=== PATIENT | female | born 1950 | race Caucasian/White ===

== ENCOUNTER 2022-01-24 18:37 | Emergency (ER) | payer MEDICARE, OTHER ==
[~2022-01-24] VITALS: Ht 167.6 cm; Wt 95.3 kg
--- NOTE | 2022-01-24 18:39 | NUR ---
Placed in room 01 . Placed on development analyst, blood pressure machine and pulse oximeter. To gown for exam. Side rails up.
[2022-01-24 18:40] VITALS: BP_SYST 130
--- NOTE | 2022-01-24 18:45 | NUR ---
Pt brought in from home by family member due to PCP reported abn BUN/Cr levels this am and advised pt to come to ER for further eval. Pt arrived to ED in stable condition. No acute signs of distress. Breathing adequately on RA.
[2022-01-24] MEDS ORDERED: SIMV40TA2 PO (19:19)
[2022-01-24] MEDS ORDERED: ASCO500W7 PO (19:19)
[2022-01-24] MEDS ORDERED: GABA-533 PO (19:19)
[2022-01-24] MEDS ORDERED: ASPI-862 PO (19:19)
[2022-01-24] MEDS ORDERED: LOSA50TA3 PO (19:19)
[2022-01-24] MEDS ORDERED: FERR236T3 PO (19:19)
[2022-01-24] MEDS ORDERED: CYAN50009 PO (19:19)
[2022-01-24] MEDS ORDERED: MONT-40 PO (19:19)
[2022-01-24] MEDS ORDERED: VITD2000 PO (19:19)
--- NOTE | 2022-01-24 20:30 | NUR ---
BROKER AT BEDSIDE TO COLLECT BLOOD
[2022-01-24 20:57] LABS: PLATELET COUNT (AUTO) 240 K/uL (130-430)
[2022-01-24 21:10] LABS: BASOPHILS % (AUTO) 0.6 % (0.0-2.0); EOSINOPHILS # (AUTO) 0.3 K/uL (0.0-0.4); EOSINOPHILS % (AUTO) 3.1 % (0.0-4.0); HEMATOCRIT 28.1 % (36-48); HEMOGLOBIN 9.5 g/dL (12.0-16.0); LYMPHOCYTES # (AUTO) 1.1 K/uL (1.0-5.5); LYMPHOCYTES % (AUTO) 13.9 % (20.5-51.5); MEAN CORPUSCULAR HEMOGLOBIN 31 pg (27-31); MEAN CORPUSCULAR HGB CONC 34 % (32-36); MEAN CORPUSCULAR VOLUME 92 fL (79.0-98.0); MONOCYTES # (AUTO) 0.6 K/uL (0.0-1.0); MONOCYTES % (AUTO) 7.5 % (1.7-9.3); NEUTROPHILS # (AUTO) 6.1 K/uL (1.8-7.7); NEUTROPHILS % (AUTO) 74.9 % (40.0-70.0); RED BLOOD CELL COUNT(AUTO) 3.05 MIL/uL (4.2-6.2); RED CELL DISTRIBUTION WIDTH 13.6 % (9.0-15.0); WHITE BLOOD COUNT (AUTO) 8.2 K/uL (4.8-10.8)
[2022-01-24 21:13] LABS: ANION GAP 12 (5-15); CALCIUM 9.1 mg/dL (8.4-11.0); CHLORIDE 107 mmol/L (98-107); CREATININE 3.19 mg/dL (0.55-1.30); GLUCOSE 247 mg/dL (70-99); POTASSIUM 4.4 mmol/L (3.5-5.1); SODIUM SERUM 139 mmol/L (136-145); UREA NITROGEN, BLOOD 83 mg/dL (8-21)
[2022-01-24 21:22] LABS: ALANINE AMINOTRANSFERASE 13 U/L (12-78); ALBUMIN 3.5 g/dL (3.4-4.8); ASPARTATE AMINOTRANSFERASE 7 U/L (10-37); PHOSPHORUS 6.9 mg/dL (2.7-4.5); TOTAL BILIRUBIN 0.2 mg/dL (0.0-1.0)
[2022-01-24 21:46] LABS: BILIRUBIN,URINE NEGATIVE (NEGATIVE); BLOOD, URINE NEGATIVE (NEGATIVE); CLARITY/URINE SL CLOUDY (CLEAR); COLOR,URINE YELLOW (YELLOW); GLUCOSE,URINE NEGATIVE (NEGATIVE); KETONES,URINE NEGATIVE (NEGATIVE); LEUKOCYTE ESTERASE ,URINE 2+ (NEGATIVE); NITRITE, URINE NEGATIVE (NEGATIVE); PH,URINE 5.5 (5.0-8.0); PROTEIN URINE NEGATIVE (NEGATIVE); UROBILINOGEN,URINE 0.2 (0.2-1.0)
[2022-01-24 22:20] LABS: RBC,URINE 0-3 /HPF (0-3)
[2022-01-24 22:21] LABS: BACTERIA,URINE MANY /HPF (None Seen); MUCUS,URINE None Seen /LPF (None Seen); YEAST,URINE Moderate /HPF (None Seen)
--- NOTE | 2022-01-24 23:46 | NUR ---
Covid HELENA swab collected and sent to lab.
[2022-01-25] MEDS ORDERED: cefTRIAXone 1 GM in D5W 50 ML IV ONE (02:45)
[2022-01-25] MEDS ORDERED: cefTRIAXone 1 GM VIAL ONE (02:50)
[2022-01-25] MEDS ORDERED: GABAPENTIN 100 MG CAPSULE PO ONE (03:45)
[2022-01-25] MEDS ORDERED: GABAPENTIN 100 MG CAPSULE ONE (03:46)
[2022-01-25] MEDS ORDERED: NACL 0.9% 1,000 ML IV ONE (04:30)
--- NOTE | 2022-01-25 06:00 | NUR ---
Patient to be transferred to [facility]. Is being transferred due to higher level of care/Insurance. Receiving facility has accepting physician and available space. ER physician has signed transfer form. Patient or responsible alliance party has agreed to transfer and signed form. Copy of nursing notes, lab reports, EKG, Physicians Orders and X-rays to be sent with patient. Receiving physician is MD Graham. [facility] service has been called for transfer.
--- NOTE | 2022-01-25 06:44 | NUR ---
[facility] arrived for transport. Report called in to Johnnie in ER @ [facility].
[2022-01-25 06:50] VITALS: BP_SYST 124
--- NOTE | 2022-01-25 06:51 | NUR ---
Terrance was made aware of transer.
== END 2022-01-25 06:49 | disposition short-term general hospital (02) ==
LOC: SED 18:37
DX: R53.1 Weakness (principal); R47.81 Slurred speech; I10 Essential (primary) hypertension; E11.9 Type 2 diabetes mellitus without complications; Z79.899 Other long term (current) drug therapy; Z20.822 Contact with and (suspected) exposure to COVID-19
CPT/HCPCS: 36415; 71045; 76770; 80053; 81000; 83735; 84100; 84484; 85025; 87086; 87426; 93005; 96361; 96365; 99285; J0696; J7030

== ENCOUNTER 2022-02-14 13:49 | Emergency (ER) | payer MEDICARE ==
[~2022-02-14] VITALS: Ht 167.6 cm; Wt 95.3 kg
[2022-02-14 13:49] VITALS: BP_SYST 141
[~2022-02-14 13:49] MED LIST: ASCO500W7 PO; ASPI-862 PO; CYAN50009 PO; FERR236T3 PO; GABA-533 PO; LOSA50TA3 PO; MONT-40 PO; SIMV40TA2 PO; VITD2000 PO
[2022-02-14 15:31] LABS: BASOPHILS # (AUTO) 0.1 K/uL (0.0-0.2); BASOPHILS % (AUTO) 1.2 % (0.0-2.0); EOSINOPHILS # (AUTO) 0.5 K/uL (0.0-0.4); EOSINOPHILS % (AUTO) 8.1 % (0.0-4.0); HEMATOCRIT 22.6 % (36-48); LYMPHOCYTES % (AUTO) 15.6 % (20.5-51.5); MEAN CORPUSCULAR HEMOGLOBIN 32 pg (27-31); MEAN CORPUSCULAR HGB CONC 34 % (32-36); MEAN CORPUSCULAR VOLUME 93 fL (79.0-98.0); MONOCYTES # (AUTO) 0.5 K/uL (0.0-1.0); MONOCYTES % (AUTO) 7.3 % (1.7-9.3); NEUTROPHILS # (AUTO) 4.6 K/uL (1.8-7.7); NEUTROPHILS % (AUTO) 67.8 % (40.0-70.0); PLATELET COUNT (AUTO) 265 K/uL (130-430); RED BLOOD CELL COUNT(AUTO) 2.43 MIL/uL (4.2-6.2); RED CELL DISTRIBUTION WIDTH 14.5 % (9.0-15.0); WHITE BLOOD COUNT (AUTO) 6.7 K/uL (4.8-10.8)
[2022-02-14 15:36] LABS: HEMOGLOBIN 7.7 g/dL (12.0-16.0)
[2022-02-14 15:44] LABS: ANION GAP 6 (5-15); CALCIUM 7.9 mg/dL (8.4-11.0); CHLORIDE 108 mmol/L (98-107); CREATININE 2.12 mg/dL (0.55-1.30); GLUCOSE 208 mg/dL (70-99); POTASSIUM 5.3 mmol/L (3.5-5.1); SODIUM SERUM 138 mmol/L (136-145); UREA NITROGEN, BLOOD 16 mg/dL (8-21)
[2022-02-14 15:50] LABS: ALANINE AMINOTRANSFERASE 11 U/L (12-78); ALBUMIN 2.5 g/dL (3.4-4.8); ASPARTATE AMINOTRANSFERASE 14 U/L (10-37); TOTAL BILIRUBIN 0.2 mg/dL (0.0-1.0)
[2022-02-14] MEDS ORDERED: MONT-40 PO (16:57)
[2022-02-14 17:16] LABS: BILIRUBIN,URINE NEGATIVE (NEGATIVE); BLOOD, URINE 3+ (NEGATIVE); COLOR,URINE YELLOW (YELLOW); GLUCOSE,URINE NEGATIVE (NEGATIVE); KETONES,URINE NEGATIVE (NEGATIVE); LEUKOCYTE ESTERASE ,URINE 1+ (NEGATIVE); NITRITE, URINE NEGATIVE (NEGATIVE); PH,URINE 5.5 (5.0-8.0); PROTEIN URINE NEGATIVE (NEGATIVE); UROBILINOGEN,URINE 0.2 (0.2-1.0)
[2022-02-14 17:22] LABS: CLARITY/URINE SLIGHTLY HAZY (CLEAR)
[2022-02-14 17:31] LABS: BACTERIA,URINE FEW /HPF (None Seen)
[2022-02-14 17:32] LABS: MUCUS,URINE None Seen /LPF (None Seen); URIC ACID CRYSTALS,URINE 0-10 /HPF (None Seen); YEAST,URINE Few /HPF (None Seen)
[2022-02-14] MEDS ORDERED: cefTRIAXone 1 GM IVPB PREMIX 50 ML IV ONE (19:00)
[2022-02-14 20:57] VITALS: BP_SYST 135
== END 2022-02-14 20:55 | disposition short-term general hospital (02) ==
LOC: SED 13:49
DX: N18.9 Chronic kidney disease, unspecified (principal); N39.0 Urinary tract infection, site not specified; R53.1 Weakness; E11.9 Type 2 diabetes mellitus without complications; I10 Essential (primary) hypertension; Z20.822 Contact with and (suspected) exposure to COVID-19
CPT/HCPCS: 36415; 71045; 80053; 81000; 83605; 83880; 84484; 85025; 87040; 87086; 87426; 93005; 96365; 99285; J0696

== ENCOUNTER 2022-02-25 20:11 | Emergency (ER) | payer MEDICARE ==
[~2022-02-25] VITALS: Ht 167.6 cm; Wt 106.6 kg
[2022-02-25 20:15] VITALS: BP_SYST 123
[2022-02-25 21:27] LABS: PROTHROMBIN TIME 10.3 SECS (9.5-12.5)
[2022-02-25 21:32] LABS: BASOPHILS # (AUTO) 0.1 K/uL (0.0-0.2); EOSINOPHILS # (AUTO) 0.7 K/uL (0.0-0.4); EOSINOPHILS % (AUTO) 7.1 % (0.0-4.0); HEMATOCRIT 25.9 % (36-48); LYMPHOCYTES # (AUTO) 0.9 K/uL (1.0-5.5); LYMPHOCYTES % (AUTO) 9.3 % (20.5-51.5); MEAN CORPUSCULAR HEMOGLOBIN 32 pg (27-31); MEAN CORPUSCULAR HGB CONC 35 % (32-36); MEAN CORPUSCULAR VOLUME 93 fL (79.0-98.0); MONOCYTES # (AUTO) 0.6 K/uL (0.0-1.0); MONOCYTES % (AUTO) 5.5 % (1.7-9.3); NEUTROPHILS # (AUTO) 7.9 K/uL (1.8-7.7); NEUTROPHILS % (AUTO) 77.1 % (40.0-70.0); PLATELET COUNT (AUTO) 282 K/uL (130-430); RED BLOOD CELL COUNT(AUTO) 2.78 MIL/uL (4.2-6.2); WHITE BLOOD COUNT (AUTO) 10.2 K/uL (4.8-10.8)
[2022-02-25] MEDS ORDERED: NACL 0.9% 1,000 ML IV ONE ×2 (21:45→22:45)
[2022-02-25 22:00] LABS: ANION GAP 11 (5-15); CALCIUM 7.5 mg/dL (8.4-11.0); CHLORIDE 96 mmol/L (98-107); GLUCOSE 255 mg/dL (70-99); SODIUM SERUM 133 mmol/L (136-145); TOTAL BILIRUBIN 0.2 mg/dL (0.0-1.0); UREA NITROGEN, BLOOD 63 mg/dL (8-21)
[2022-02-25 22:01] LABS: ACETONE, SERUM NEGATIVE (NEGATIVE); ALANINE AMINOTRANSFERASE 27 U/L (12-78); ALBUMIN 2.8 g/dL (3.4-4.8); ASPARTATE AMINOTRANSFERASE 17 U/L (10-37); LIPASE 293 U/L (73-393)
[2022-02-26 01:01] LABS: BILIRUBIN,URINE NEGATIVE (NEGATIVE); BLOOD, URINE NEGATIVE (NEGATIVE); CLARITY/URINE CLEAR (CLEAR); COLOR,URINE YELLOW (YELLOW); GLUCOSE,URINE NEGATIVE (NEGATIVE); KETONES,URINE NEGATIVE (NEGATIVE); LEUKOCYTE ESTERASE ,URINE 2+ (NEGATIVE); NITRITE, URINE NEGATIVE (NEGATIVE); PROTEIN URINE NEGATIVE (NEGATIVE); UROBILINOGEN,URINE 0.2 (0.2-1.0)
[2022-02-26 02:50] VITALS: BP_SYST 120
== END 2022-02-26 02:50 | disposition short-term general hospital (02) ==
LOC: SED 20:11
DX: N17.9 Acute kidney failure, unspecified (principal); I11.0 Hypertensive heart disease with heart failure; I50.9 Heart failure, unspecified; E11.9 Type 2 diabetes mellitus without complications; Z79.899 Other long term (current) drug therapy; Z20.822 Contact with and (suspected) exposure to COVID-19
CPT/HCPCS: 36415; 71045; 74176; 76376; 80053; 81003; 82009; 82272; 82550; 83605; 83690; 83880; 84484; 85025; 85610; 85730; 86886; 86900; 86901; 87426; 93005; 96360; 96361; 99285; J7030

== ENCOUNTER 2023-04-15 16:09 | Emergency (ER) | payer MEDICARE ==
[~2023-04-15] VITALS: Ht 162.6 cm; Wt 72.6 kg
[~2023-04-15 16:09] MED LIST changes: +SIMV-345 PO; -SIMV40TA2 PO
[2023-04-15 16:23] VITALS: BP_SYST 158; PULSE 70; RESP 22; TEMP 98.3; O2SAT 98
--- NOTE | 2023-04-15 16:35 | NUR ---
PT BIBA FROM HOME FOR INCREASED SWELLING TO BLE, PER REPORT, ELECTRICITY WAS TURNED OFF IN [facility] AND PT NEEDS ELECTRICITY FOR HER MATTRESS AT HOME. PT IS A [place] PT AND RECEIVED HOME HEALTH AT HOME WITH WOUND CARE. PT SOILED IN URINE AND FECES. CHARLES AREA CLEANED, PT CRIES WITH VERY LITTLE MOVEMENT. BLE EDEMATOUS/WHITE EXUDATE, PAINFUL TO TOUCH PER PT. RT HAND CONTRACTED, PT DOES NOT ALLOW ANY IV TO RT ARM. PT DENIES ANY CP OR SOB. SAFETY PRECAUTIONS IN PLACE, WILL WAIT FOR ER MD DEL CID FOR ORDERS.
[2023-04-15] MEDS ORDERED: VANCOMYCIN HCL 1,000 MG in NS 250 ML IV ONE (16:45)
[2023-04-15] MEDS ORDERED: MEROPENEM 1 GM IVPB PREMIX 50 ML IV ONE (16:45)
--- NOTE | 2023-04-15 16:46 | NUR ---
DR ODONNELL IN ROOM FOR EXAM
[2023-04-15] MEDS ORDERED: MEROPENEM 1 GM in NS 100 ML IV ONE (17:15)
--- NOTE | 2023-04-15 17:22 | NUR ---
# 16 FR Zamorano catheter with use of sterile technique. Immediate return of cc YELLOW urine noted. Bedside drainage bag placed below level of bladder. Urine sample collected and sent to lab. Pt tolerated procedure FAIRLY. Patient arrived with zamorano in place, changed due to standard of practice prior to admission. Patient unable to toilet self.
[2023-04-15 17:29] LABS: BASOPHILS # (AUTO) 0.1 K/uL (0.0-0.2); BASOPHILS % (AUTO) 0.7 % (0.0-2.0); EOSINOPHILS % (AUTO) 8.9 % (0.0-4.0); HEMATOCRIT 32.6 % (36-48); HEMOGLOBIN 11.1 g/dL (12.0-16.0); LYMPHOCYTES # (AUTO) 1.9 K/uL (1.0-5.5); LYMPHOCYTES % (AUTO) 16.7 % (20.5-51.5); MEAN CORPUSCULAR HEMOGLOBIN 31 pg (27-31); MEAN CORPUSCULAR HGB CONC 34 % (32-36); MEAN CORPUSCULAR VOLUME 89 fL (79.0-98.0); MONOCYTES # (AUTO) 0.6 K/uL (0.0-1.0); MONOCYTES % (AUTO) 4.9 % (1.7-9.3); NEUTROPHILS # (AUTO) 7.7 K/uL (1.8-7.7); NEUTROPHILS % (AUTO) 68.8 % (40.0-70.0); PLATELET COUNT (AUTO) 235 K/uL (130-430); RED BLOOD CELL COUNT(AUTO) 3.65 MIL/uL (4.2-6.2); RED CELL DISTRIBUTION WIDTH 14.2 % (9.0-15.0); WHITE BLOOD COUNT (AUTO) 11.2 K/uL (4.8-10.8)
[2023-04-15 17:38] LABS: ALANINE AMINOTRANSFERASE 22 U/L (12-78); ANION GAP 9 (5-15); ASPARTATE AMINOTRANSFERASE 24 U/L (10-37); CALCIUM 9.7 mg/dL (8.4-11.0); CHLORIDE 98 mmol/L (98-107); CREATININE 1.72 mg/dL (0.55-1.30); GLUCOSE 389 mg/dL (74-106); TOTAL BILIRUBIN 0.6 mg/dL (0.0-1.0); UREA NITROGEN, BLOOD 26 mg/dL (8-21)
--- NOTE | 2023-04-15 18:02 | NUR ---
AT BEDSIDE, UPDATED ON STATUS AND PENDING PLAN OF CARE. STATES HE WANTS TO GO HOME TONIGHT. DR ODONNELL INFORMED.
[2023-04-15] MEDS ORDERED: KCL 20 mEq in 100 mL (PREMIX) 100 ML IV ONE (18:15)
[2023-04-15 18:18] LABS: BILIRUBIN,URINE NEGATIVE (NEGATIVE); BLOOD, URINE NEGATIVE (NEGATIVE); CLARITY/URINE CLEAR (CLEAR); COLOR,URINE YELLOW (YELLOW); GLUCOSE,URINE 3+ (NEGATIVE); KETONES,URINE NEGATIVE (NEGATIVE); LEUKOCYTE ESTERASE ,URINE NEGATIVE (NEGATIVE); NITRITE, URINE NEGATIVE (NEGATIVE); PH,URINE 5.5 (5.0-8.0); PROTEIN URINE NEGATIVE (NEGATIVE); UROBILINOGEN,URINE 0.2 (0.2-1.0)
[2023-04-15] MEDS ORDERED: VANCOMYCIN HCL 1000 MG/VIAL IV ONE (18:21)
--- NOTE | 2023-04-15 18:26 | NUR ---
WANTING TO TAKE HOME, PER LAND MANAGER, PT WILL BE RESPONSIBLE FOR AMBULANCE IF SHE GOES AMA. DR ODONNELL TALKED TO PT'S , HE STATES HE WILL GO TO [facility].
[2023-04-15 19:11] LABS: BACTERIA,URINE RARE /HPF (None Seen); MUCUS,URINE 1+ /LPF (None Seen); RBC,URINE 0-3 /HPF (0-3); WBC,URINE 0-3 /HPF (0-3)
--- NOTE | 2023-04-15 20:18 | NUR ---
# 22 gauge angiocath placed to l arm. Use of asceptic technique. Opsite placed over site. Blood return noted. Blood for lab drawn from site. Flushed with 10 cc of normal saline. No evidence of infiltration noted. Patient tolerated well.
--- NOTE | 2023-04-15 21:27 | NUR ---
pt in bed resting with eyes closed. pt vss.
[2023-04-15] MEDS ORDERED: MEROPENEM 500 MG VIAL IV ONE (22:25)
--- NOTE | 2023-04-15 22:50 | NUR ---
Patient to be transferred to [facility]. Is being transferred due to higher level of care. Receiving facility has accepting physician and available space. ER physician has signed transfer form. Patient or responsible green party has agreed to transfer and signed form. Patient belongings inventoried and will be sent with patient. Copy of nursing notes, lab reports, EKG, Physicians Orders and X-rays to be sent with patient. Report called to KAREN at receiving facility. Receiving physician is MAURA. ambulance service has been called for transfer.
[2023-04-16 00:33] VITALS: BP_SYST 175; PULSE 82; RESP 21; TEMP 98.6; O2SAT 90
== END 2023-04-16 00:33 | disposition short-term general hospital (02) ==
LOC: SED 16:09
DX: L03.116 Cellulitis of left lower limb (principal); L03.115 Cellulitis of right lower limb; M79.10 Myalgia, unspecified site; I11.0 Hypertensive heart disease with heart failure; I50.9 Heart failure, unspecified; E11.9 Type 2 diabetes mellitus without complications; Z79.899 Other long term (current) drug therapy
CPT/HCPCS: 99285; 96365; 71045; 96366; 96367; 80053; 81000; 85025; 87040; 36415; 93005; 83605; 87070; J2185; J3480; J3370

== ENCOUNTER 2024-07-15 19:32 | Emergency (ER) | payer MEDICARE ==
[~2024-07-15] VITALS: Ht 165.1 cm; Wt 72.6 kg
[~2024-07-15 19:32] MED LIST changes: -GABA-533 PO; +GABA-534 PO; +LOSA-413 PO; -LOSA50TA3 PO
[2024-07-15 19:47] VITALS: BP_SYST 159; PULSE 76; RESP 16; TEMP 96.7; O2SAT 94
[2024-07-15 20:42] LABS: BASOPHILS # (AUTO) 0.1 K/uL (0.0-0.2); BASOPHILS % (AUTO) 0.3 % (0.0-2.0); EOSINOPHILS % (AUTO) 0.1 % (0.0-4.0); HEMATOCRIT 34.3 % (36-48); HEMOGLOBIN 11.7 g/dL (12.0-16.0); LYMPHOCYTES % (AUTO) 4.5 % (20.5-51.5); MEAN CORPUSCULAR HEMOGLOBIN 31 pg (27-31); MEAN CORPUSCULAR HGB CONC 34 % (32-36); MEAN CORPUSCULAR VOLUME 92 fL (79.0-98.0); MONOCYTES # (AUTO) 0.9 K/uL (0.0-1.0); MONOCYTES % (AUTO) 3.9 % (1.7-9.3); NEUTROPHILS # (AUTO) 20.7 K/uL (1.8-7.7); NEUTROPHILS % (AUTO) 91.2 % (40.0-70.0); PLATELET COUNT (AUTO) 326 K/uL (130-430); RED BLOOD CELL COUNT(AUTO) 3.72 MIL/uL (4.2-6.2); RED CELL DISTRIBUTION WIDTH 14.8 % (9.0-15.0); WHITE BLOOD COUNT (AUTO) 22.7 K/uL (4.8-10.8)
[2024-07-15 20:48] LABS: ANION GAP 8 (5-15); CARBON DIOXIDE 27 mmol/L (23-29); CHLORIDE 103 mmol/L (98-107); CREATININE 1.44 mg/dL (0.55-1.30); GLUCOSE 199 mg/dL (74-106); POTASSIUM 4.8 mmol/L (3.5-5.1); SODIUM SERUM 138 mmol/L (136-145); UREA NITROGEN, BLOOD 21 mg/dL (8-21)
[2024-07-15] MEDS: FAMOTIDINE PF 20 MG/2 ML VIAL IVP ONE (22:06)
[2024-07-16] MEDS: NACL 0.9% 1,000 ML IV ONE (00:45)
[2024-07-16 05:22] LABS: BILIRUBIN,URINE NEGATIVE (NEGATIVE); BLOOD, URINE NEGATIVE (NEGATIVE); CLARITY/URINE CLEAR (CLEAR); COLOR,URINE YELLOW (YELLOW); GLUCOSE,URINE NEGATIVE (NEGATIVE); KETONES,URINE NEGATIVE (NEGATIVE); LEUKOCYTE ESTERASE ,URINE NEGATIVE (NEGATIVE); NITRITE, URINE NEGATIVE (NEGATIVE); PROTEIN URINE NEGATIVE (NEGATIVE); UROBILINOGEN,URINE 0.2 (0.2-1.0)
[2024-07-16 07:22] VITALS: BP_SYST 156; PULSE 77; RESP 18; TEMP 97.4; O2SAT 95
== END 2024-07-16 07:00 | disposition short-term general hospital (02) ==
LOC: SED 19:32
DX: K57.11 Diverticulosis of small intestine without perforation or abscess with bleeding (principal); I11.0 Hypertensive heart disease with heart failure; I50.9 Heart failure, unspecified; E11.9 Type 2 diabetes mellitus without complications; Z20.822 Contact with and (suspected) exposure to COVID-19; Z86.73 Personal history of transient ischemic attack (TIA), and cerebral infarction without residual deficits; Z79.899 Other long term (current) drug therapy; Z79.82 Long term (current) use of aspirin
CPT/HCPCS: 99285; 74176; 96374; 87426; 80048; 81001; 82140; 85025; 86886; 86900; 86901; 84484; 36415; 81003; J3490